=== PATIENT | female | born 1990 | race American Indian/Alaskan Native ===

== ENCOUNTER 2024-12-26 21:27 | Emergency (ER) | payer MEDICAID ==
[~2024-12-26] VITALS: Ht 160 cm; Wt 113.6 kg
[2024-12-26 21:30] VITALS: BP 143/80; PULSE 91; RESP 20; O2SAT 99
--- NOTE | 2024-12-26 22:34 | Physician Documentation ---
History of Present Illness ~ Chief Complaint: Vaginal pain Stated Complaint: ABDOMINAL PAIN Time Seen by MD: 22:27 HPI 34-year-old female presenting with pelvic pain She tells me that her pain started yesterday. She reports it as across her lower abdomen, initially was dull and achy, now is sharp, worse in the left pelvic region. It is severe. It is worse when she walks. She tried taking anti-inflammatories without much relief. Medication Reconciliation Allergies: Coded Allergies: tetracycline (Unverified Allergy, Unknown, 12/26/24) Scheduled Metronidazole* (Flagyl*), 1 TAB PO Q12H Physical Exam Vital Signs: Heart Rate: 91, Respiratory Rate: 20, BP: 143/80, Pulse Oximetry: 99, Weight: 113.640 Physical Exam General: This is a pleasant young woman, mother at bedside HEENT: Atraumatic, oropharynx is moist Heart: Mild tachycardic, appears regular Lungs: Cnormal work of breathing, normal oxygen saturation on room air Abdomen: Soft, nondistended. The patient has tenderness to palpation in the suprapubic and left pelvic region, otherwise nontender, no rebound or guarding : On exam, the patient has significant erythema overlying the cervix, with purulent drainage from the cervix. She does have mild tenderness on palpation of the cervix, and on bimanual exam has mild left adnexal tenderness Neuro: Alert and oriented, no focal deficits Psychiatric: Calm and cooperative with exam Progress Results/Orders Results/Orders Orders - LEE BORGES MD Chlamydia/Gc Pcr (12/26/24 22:58) Us Pelvis/With Duplex (12/27/24 00:24) Completed Orders - LEE BORGES MD Urinalysis, Cult If Indicated (12/26/24 22:57) Hcg, Ur Ql (12/26/24 22:58) Wet Prep (12/26/24 22:58) Us Pelvis/With Duplex (12/27/24 00:24) Ibuprofen Tablet (Motrin Tablet) (12/27/24 02:15) Ceftriaxone Im Kit W/Lidocaine (Rocephin (12/27/24 02:15) Metronidazole Tablet (Flagyl Tablet) (12/27/24 02:15) Azithromycin Tablet (Zithromax Tablet) (12/27/24 02:15) Medications Received in ER Medications (Trade) Dose Ordered Sig/Jaye Route PRN Reason Start Time Stop Time Status Last Admin Dose Admin (Motrin tablet) 800 mg ONCE ONCE PO 12/27/24 02:15 12/27/24 02:16 DC 12/27/24 02:31 800 MG (Rocephin 1GM IM kit (w/lidocaine diluent)) 500 mg ONCE ONCE IM 12/27/24 02:15 12/27/24 02:19 DC 12/27/24 02:32 500 MG (Flagyl tablet) 500 mg ONCE ONCE PO 12/27/24 02:15 12/27/24 02:19 DC 12/27/24 02:31 500 MG (Zithromax tablet) 1,000 mg ONCE ONCE PO 12/27/24 02:15 12/27/24 02:19 DC 12/27/24 02:31 1,000 MG Vital Signs 12/26/24 21:30 Pulse 91 Resp 20 B/P (MAP) 143/80 Pulse Ox 99 Laboratory Tests Test 12/26/24 23:03 12/27/24 00:05 Urine Specimen Description Cln catch midstream Urine Color Yellow Urine Clarity Clear Urine pH 6.5 Urine Specific [place] 1.020 Urine Protein Negative Urine Glucose (UA) Negative Urine Ketones Negative Urine Occult Blood Negative Urine Nitrite Negative Urine Bilirubin Negative Urine Urobilinogen 0.2 Urine Leukocyte Esterase Negative Urine Culture Indicated Not ind Volume Urine Centrifuged 10 ml Urine HCG, Qualitative Negative Urine Comment Microbiology Date/Time Source Procedure Growth Status 12/27/24 00:05 Genital Cervical Wet Prep - Final Complete EKG/XRAY/CT/US/VASC/MRI Ultrasound : Impression Pelvic ultrasound does not show evidence of torsion or ruptured cyst, no evidence of abscess Medical Decision Making Urinary Diff Dx:Considerations: Include: Appendicitis, Ectopic , Intrauterine , Ovarian torsion, PID, Urolithiasis, UTI Additional Comment The patient presents with pelvic pain. On exam she does have some pelvic tenderness. Pelvic exam shows inflammatory changes to the cervix consistent with cervicitis. Her pelvic ultrasound does not show an acute or dangerous finding. She is not . Urinalysis without evidence of infection. She will be treated with antibiotics, was given IM ceftriaxone. She has an allergy to doxycycline and so she was given azithromycin instead. She will be discharged with metronidazole as well. She was given home care instructions and return precautions, and instructions to follow up with her primary provider in about a week when she returns home to determine if she needs further workup or treatment. Departure Time of Disposition: 02:22 Disposition: 01 HOME / SELF CARE / HOMELESS Impression: Primary Impression: Acute cervicitis Condition: Stable Discharge Instructions: Cervicitis Referrals: NO PRIMARY CARE PROVIDER (PCP) Prescriptions Metronidazole* (Flagyl*) 500 Mg Tablet 1 TAB PO Q12H for 7 Days, #14 TAB Prov: LEE BORGES MD 12/27/24 Education Educated: Patient Educated regarding: diagnosis, treatment Signature Scribe Signature: mary kay Attestation: LEE Yeh MD Dec 26, 2024 22:34
[2024-12-26 23:13] LABS: URINE HCG NEGATIVE (NEG)
[2024-12-26 23:16] LABS: BILIRUBIN,URINE NEGATIVE (Neg); CLARITY,URINE CLEAR (Clear); COLOR,URINE YELLOW (Yellow); GLUCOSE, URINE NEGATIVE (Neg); KETONES,URINE NEGATIVE (Neg); LEUKOCYTE ESTERASE ,URINE NEGATIVE (Neg); NITRITES, URINE NEGATIVE (Neg); OCCULT BLOOD,URINE NEGATIVE (Neg); PH,URINE 6.5 (4.8-8.0); PROTEIN,URINE NEGATIVE (Neg); UROBILINOGEN,URINE 0.2 E.U/dL (0.2-1.0)
[2024-12-26 23:21] LABS: UA COLLECTION TYPE CLN CATCH MIDSTREAM
[2024-12-27] MEDS ORDERED: METR-159 PO (02:22)
[2024-12-27] MEDS: ibuprofen tablet 400 MG TABLET PO ONE (02:31)
[2024-12-27] MEDS: azithromycin 250mg tablet PO ONE (02:31)
[2024-12-27] MEDS: metroNIDAZOLE 500mg tablet PO ONE (02:31)
[2024-12-27] MEDS: CefTRIAXone 1000mg IM Kit (w/lidocaine diluent) IM ONE (02:32)
--- NOTE | 2024-12-27 02:35 | RADIOLOGY REPORT ---
INDICATION: pelvic pain, left side TECHNIQUE: Multiple real-time grayscale transabdominal sonographic images along with color and duplex Doppler of the uterus and ovaries were obtained. COMPARISON: None FINDINGS: The uterus is retroverted and measures 7.7 x 4.3 x 4.0 cm. The endometrial stripe measures 0.8 cm. No identifiable free fluid. Right ovary measures 3.4 x 2.7 x 2.2 cm with normal Doppler color flow Left ovary measures 3.2 x 2.3 x 2.0 cm with normal Doppler color flow IMPRESSION: 1. Grossly unremarkable pelvic ultrasound.
== END 2024-12-27 02:39 | disposition home or self-care (01) ==
LOC: ER 21:28
DX: N72 Inflammatory disease of cervix uteri (principal); Z88.1 Allergy status to other antibiotic agents
CPT/HCPCS: 76856; 81003; 81025; 87210; 93976; 96372; 99285; J0696; 36415; 87491; 87591